=== PATIENT | male | born 1990 | race Caucasian/White ===

== ENCOUNTER 2019-04-30 00:42 | Emergency (ER) | payer OTHER ==
[~2019-04-30] VITALS: Ht 170.2 cm; Wt 63.3 kg
[2019-04-30 00:49] VITALS: Ht 170.2 cm; Wt 63.3 kg
--- NOTE | 2019-04-30 03:18 | ERD ---
ER Documentation Chief Complaint Chief Complaint ABSCESS ON LEFT UPPER, INSIDE THIGH X'S 1 MONTH HPI 28-year-old male presents with complaint of mass on the inside of his left thigh. States is been there for about a month. States is not tender to palpation or erythematous. Denies any fevers, chills. Denies any treatments. Denies any medical problems. Denies any allergies. ROS All systems reviewed and are negative except as per history of present illness. Medications Home Meds Active Scripts Cephalexin* (Keflex*) 500 Mg Capsule, 500 MG PO QID for 7 Days, CAP Prov:NISHA ZAVALA 04/30/19 Sulfamethoxazole/Trimethoprim* (Bactrim Ds* Tablet) 1 Each Tablet, 1 TAB PO BID, #14 TAB Prov:NISHA ZAVALA 04/30/19 Allergies Allergies: Coded Allergies: No Known Allergy (Unverified , 04/30/19) PMhx/Soc Medical and Surgical Hx: pt denies Medical Hx, pt denies Surgical Hx Hx Alcohol Use: No Hx Substance Use: No Hx Tobacco Use: No Smoking Status: Never smoker FmHx Family History: No diabetes, No coronary disease, No other Physical Exam Vitals Vital Signs Date Temp Pulse Resp B/P (MAP) Pulse Ox O2 O2 Flow FiO2 Time Delivery Rate 04/30/19 97.6 84 18 118/69 98 00:49 (85) Physical Exam Const: No acute distress Head: Atraumatic Eyes: Normal Conjunctiva ENT: Normal External Ears, Nose and Mouth. Neck: Full range of motion. No meningismus. Resp: Clear to auscultation bilaterally Cardio: Regular rate and rhythm, no murmurs Abd: Soft, non tender, non distended. Normal bowel sounds Skin: No petechiae or rashes. Approximately 2 cm round indurated and nonfluctuant subcutaneous mass noted to the inner left thigh. There is no lymphatic streaking noted. There is no drainage noted. Back: No midline or flank tenderness Ext: No cyanosis, or edema Neur: Awake and alert Psych: Normal Mood and Affect Results 24 hrs Current Medications Medications Dose Sig/Lorin Start Time Status Last (Trade) Ordered Route PRN Stop Time Admin Dose Reason Admin Bacitracin 1 applic ONCE ONCE 04/30/19 (Bacitracin TOP 05:00 Oint (Ud)) 6/13/19 05:01 Procedures/MDM Abscess Incision and Drainage with irrigation by me: Location: Left medial thigh Anesthesia: Local 1% Lidocaine Technique: Irrigated. Disrupted loculations w/ instrumentation Packing: None Complications: Neurovascularly intact post procedure 48 hour wound check. Scar minimization instructions given. ED Ultrasound: Abscess localized by me using concurrent ultrasound guidance and assessment of the anatomy. Real time image archived in the medical record confirms anatomy. Cyst was successfully drained using above technique. Patient advised to return in 40 hours for wound check. Patient placed on Keflex and Bactrim At this time, patient is stable for discharge and outpatient management. I have instructed the patient to follow-up with his/her primary care physician in 1-2 days. I have discussed with the patient the possibility of needing to see a specialist for further workup and imaging studies if symptoms persist. I have instructed the patient to promptly return to the ER for any new or worsening symptoms including but not limited to increased pain, fever, nausea, vomiting, weakness or LOC. The patient and/or family expressed understanding of and agreement with this plan. All questions were answered. Home care instructions were provided. DISCLAIMER: Inadvertent spelling and grammatical errors are likely due to EHR/dictation software use and do not reflect on the overall quality of patient care. Also, please note that the electronic time recorded on this note does not necessarily reflect the actual time of the patient encounter. Departure Diagnosis: Primary Impression: Cyst Condition: Stable NISHA ZAVALA Apr 30, 2019 03:18
[2019-04-30] MEDS ORDERED: SULF1TAB31 PO (04:34)
[2019-04-30] MEDS ORDERED: CEPH-443 PO (04:34)
[2019-04-30] MEDS ORDERED: BACITRACIN 0.9 GM OINT TOP ONE (05:00)
[2019-04-30 05:06] VITALS: BP 114/64; PULSE 73; RESP 18
[2019-05-01] MEDS ORDERED: GUAI100L27 PO (02:56)
[2019-05-01] MEDS ORDERED: IBUP800T48 PO (02:56)
== END 2019-04-30 05:06 | disposition home or self-care (01) ==
LOC: FTE 00:42
DX: L72.9 Follicular cyst of the skin and subcutaneous tissue, unspecified (principal)
CPT/HCPCS: 10060; 76536; Z7502; Z7610

== ENCOUNTER 2019-05-01 02:11 | Emergency (ER) | payer OTHER ==
[~2019-05-01] VITALS: Ht 170.2 cm; Wt 63.1 kg
[~2019-05-01 02:11] MED LIST: CEPH-443 PO; SULF1TAB31 PO
[2019-05-01 02:14] VITALS: PULSE 122; Ht 170.2 cm; Wt 63.1 kg
--- NOTE | 2019-05-01 02:34 | ERD ---
ER Documentation Chief Complaint Chief Complaint COUGH ON/OFF [id number]; SWOLLEN PINKY-NO KNOWN INJ HPI This is a 28-year-old male who presents here in emergency department with complaints of cough that is on and off for about 6 months. Stated that he has swelling to his right pinky finger with unknown injury. Stated that he was just here yesterday for a left inner thigh cyst or abscess that was drained. Was prescribed with Bactrim and Keflex but was not able to get this from the pharmacy yet. Unable to start on his medications/antibiotics at home. Stated that he is homeless. Denies headache, head injury, loss of consciousness, dizziness, neck pain, neck stiffness, throat pain, difficulty swallowing, difficulty breathing lying flat, shoulder pain, chest pain, back pain, abdominal pain, nausea, vomiting, constipation, diarrhea, urinary symptoms, loss of bowel and bladder control, trauma, injury, falls, difficulty walking due to pain, numbness or tingling sensation, calf pain, recent travel, recent major surgery in the last 3 weeks, calf pain, recent long travel, recent exposure to any illness, recent antibiotic use in the last 3 months, fever, chills, seizures. Past medical history: Surgical history: Social: Denies smoking, use of alcoholic beverages, use of illegal drugs. ROS All systems reviewed and are negative except as per history of present illness. Medications Home Meds Active Scripts Guaifenesin* (Robafen*) 100 Mg/5 Ml Syrup, 100 MG PO Q6H PRN for COUGH, #60 ML Prov:PASILABAN,KLAR F 05/01/19 Ibuprofen* (Motrin*) 800 Mg Tab, 800 MG PO Q6H PRN for PAIN AND OR ELEVATED TEMP, #30 TAB Prov:PASILABAN,KLAR F 05/01/19 Cephalexin* (Keflex*) 500 Mg Capsule, 500 MG PO QID for 7 Days, CAP Prov:NISHA ZAVALA 04/30/19 Sulfamethoxazole/Trimethoprim* (Bactrim Ds* Tablet) 1 Each Tablet, 1 TAB PO BID, #14 TAB Prov:NISHA ZAVALA 04/30/19 Allergies Allergies: Coded Allergies: No Known Allergy (Unverified , 04/30/19) PMhx/Soc Medical and Surgical Hx: pt denies Surgical Hx History of Surgery: No Anesthesia Reaction: No Hx Neurological Disorder: No Hx Respiratory Disorders: No Hx Cardiac Disorders: No Hx Psychiatric Problems: Yes (Depression (no longer on meds)) Hx Miscellaneous Medical Probl: No Hx Alcohol Use: No Hx Substance Use: No Hx Tobacco Use: Yes (Vaping) Smoking Status: Current every day smoker Physical Exam Vitals Vital Signs Date Temp Pulse Resp B/P (MAP) Pulse Ox O2 O2 Flow FiO2 Time Delivery Rate 05/01/19 16 117/90 100 Room Air 03:10 (99) 05/01/19 97.4 122 18 138/80 98 02:14 (99) Physical Exam Head: Atraumatic Eyes: Normal Conjunctiva ENT: Normal External Ears, Nose and Mouth. Bilateral ears: TMs are not erythematous. No bleeding. No discharge. No hearing loss. No mastoid tenderness. Nose: There is no frontal or maxillary sinus tenderness palpation. Throat: Uvula is in midline and nondisplaced. Tonsils are +1 bilaterally without redness and without exudates. Tolerating secretions. Patent airway. Speaks full and clear sentences. No tripoding. Neck: Full range of motion. No meningismus. No nuchal rigidity. No signs of meningeal irritation. Resp: Clear to auscultation bilaterally. No accessory muscle use in breathing. Cardio: Regular rate and rhythm, no murmurs Abd: Soft, non tender, non distended. Normal bowel sounds. Negative Sanchez sign. Skin: No petechiae or rashes. Color appears normal for ethnicity. No skin tenting. No signs of severe dehydration. Back: No midline or flank tenderness Ext: No cyanosis, or edema. Left inner thigh: Has a site of cyst/abscess. Patient stated that this has improved. No bleeding. No discharge. No induration. Left pinky finger: Mild swelling distally and has a redness and is warm to touch. Good and full range of motion and full flexion and extension of its MCP/PIP/DIP with a score of 5/5. Very low suspicion of tendon injury. No subungual hematoma. No paronychia. No felon. Neur: Awake and alert. No neurological deficits. Psych: Normal Mood and Affect Results 24 hrs Current Medications Medications Dose Sig/Lorin Start Time Status Last (Trade) Ordered Route PRN Stop Time Admin Dose Reason Admin Ceftriaxone 1 gm ONCE ONCE 05/01/19 DC 05/01/19 Sodium IM 03:00 02:55 (Rocephin) 05/01/19 03:01 10 ml ONCE ONCE 05/01/19 DC 05/01/19 Guaifenesin/ PO 03:00 02:55 Codeine 05/01/19 03:01 Phosphate (Robitussin Ac Liquid Cup) Ibuprofen 800 mg ONCE ONCE 05/01/19 DC (Motrin) PO 03:00 05/01/19 03:01 Procedures/MDM Diagnostic tests: Clinical exam. Patient has a possibility of not being able to get his prescribed medication/antibiotics from yesterday and this is the reason why I have decided to give him 1 dose of ceftriaxone to prevent him from having severe infection. Treatment: Ceftriaxone IM. Robitussin. Motrin. I offered IV fluids but patient strongly refused. Stated that he does not need any hydration. Re-evaluation: Denies headache, neck pain, chest pain, back pain, abdominal pain, leg pain, pinky finger pain. No reactions from the medications given noted. No coughing. No accessory muscle use in breathing. Lung sounds are clear to auscultation. Stated that he feels much better at this time and that he is ready to go home. Stated that he is comfortable going home. Differential diagnosis I have low suspicion for sepsis, meningitis, pneumonia, bronchospasm, deep space infection, felon, tendon injury, tenosynovitis. Final diagnosis: Bronchitis. Patient stated that he still has his prescriptions from yesterday for Keflex and Bactrim. Prescription: Patient was instructed to take his prescription to the pharmacy to get his Keflex and Bactrim. Prescribed with Pippa Velasquezrin. Follow-up with PCP in the next 24-48 hours. Come back here in the emergency department for any new symptoms or any worsening symptoms. All questions and concerns were answered. Patient and family members verbalized understanding and agreed with plan of care. Hemodynamically stable on discharge. Departure Diagnosis: Primary Impression: Cough Additional Impressions: Cellulitis Bronchitis Condition: Stable Additional Instructions: Follow-up with PCP in the next 24-48 hours. Please secure your medications at your pharmacy using your prescriptions from yesterday. Come back here in the emergency department for any new symptoms or any worsening symptoms. KUN WELLS May 01, 2019 02:34
[2019-05-01] MEDS ORDERED: IBUP800T48 PO (02:56)
[2019-05-01] MEDS ORDERED: GUAI100L27 PO (02:56)
[2019-05-01] MEDS ORDERED: CEFTRIAXONE 1 GM INJ IM ONE (03:00)
[2019-05-01] MEDS ORDERED: IBUPROFEN 800 MG TAB PO ONE (03:00)
[2019-05-01] MEDS ORDERED: GUAIFENESIN/CODEINE 5ML CUP PO ONE (03:00)
[2019-05-01 03:10] VITALS: BP 117/90; RESP 16
== END 2019-05-01 03:23 | disposition home or self-care (01) ==
LOC: FTE 02:11
DX: J40 Bronchitis, not specified as acute or chronic (principal); F17.210 Nicotine dependence, cigarettes, uncomplicated; L03.012 Cellulitis of left finger
CPT/HCPCS: 96372; J0696; Z7502; Z7610